=== PATIENT | female | born 1990 | race Caucasian/White ===

== ENCOUNTER 2017-01-21 20:29 | Emergency (ER) | payer OTHER ==
[~2017-01-21] VITALS: Ht 157.5 cm; Wt 86.4 kg
[~2017-01-21 20:29] MED LIST: ATENOLOL25 MG PO; BCP TD; INDERAL40 MG PO; LEXAPRO; NO HOME MEDICATIONS; PHENERGAN W/CO120 ML PO; SEPTRA DS 8001 TAB PO; ZOLOFT50 MG PO
[2017-01-21 20:34] VITALS: BP 116/92; TEMP 98.4
[2017-01-21 22:00] VITALS: PULSE 96
== END 2017-01-21 22:01 | disposition home or self-care (01) ==
LOC: COL.ER 20:29
DX: S50.01XA Contusion of right elbow, initial encounter (principal); W22.8XXA Striking against or struck by other objects, initial encounter; Y92.009 Unspecified place in unspecified non-institutional (private) residence as the place of occurrence of the external cause; F32.9 Major depressive disorder, single episode, unspecified

== ENCOUNTER 2017-11-09 17:33 | Emergency (ER) | payer OTHER ==
[~2017-11-09] VITALS: Ht 157.5 cm; Wt 79.5 kg
[2017-11-09 17:38] VITALS: BP 115/70; TEMP 99.1
[2017-11-09 19:03] LABS: COLLECTION METHOD CLEAN CATCH
[2017-11-09 19:11] LABS: MUCOUS Present /lpf; PH 6 (5-8); URINE APPEARANCE Hazy; URINE BACTERIA None Seen /hpf; URINE BILIRUBIN Negative (NEGATIVE); URINE BLOOD 3+ (NEGATIVE); URINE COLOR Amber; URINE GLUCOSE Negative (NEGATIVE); URINE KETONE Negative (NEGATIVE); URINE LEUKOCYTE ESTERASE Negative (NEGATIVE); URINE NITRATE Negative (NEGATIVE); URINE PROTEIN(semi-quant) 1+ (NEGATIVE); URINE UROBILINOGEN >=4.0 mg/dL (NEGATIVE)
[2017-11-09 21:23] VITALS: PULSE 85
== END 2017-11-09 21:23 | disposition home or self-care (01) ==
LOC: COL.ER 17:33
PROVIDERS: Emergency Medicine
DX: O20.0 Threatened abortion (principal); Z3A.01 Less than 8 weeks gestation of pregnancy; Z87.42 Personal history of other diseases of the female genital tract
CPT/HCPCS: J2791

== ENCOUNTER 2017-12-02 03:56 | Emergency (ER) | payer OTHER ==
[~2017-12-02] VITALS: Ht 157.5 cm; Wt 79.5 kg
[2017-12-02 04:04] VITALS: BP 125/80; TEMP 98.2
[2017-12-02 05:54] VITALS: PULSE 64
== END 2017-12-02 05:54 | disposition home or self-care (01) ==
LOC: COL.ER 03:56
DX: O99.351 Diseases of the nervous system complicating pregnancy, first trimester (principal); G43.909 Migraine, unspecified, not intractable, without status migrainosus; Z3A.10 10 weeks gestation of pregnancy
CPT/HCPCS: J2270; J2550; J7030

== ENCOUNTER 2017-12-29 08:51 | Emergency (ER) | payer OTHER ==
[~2017-12-29] VITALS: Ht 157.5 cm; Wt 80.5 kg
[2017-12-29 08:58] VITALS: TEMP 98.7
[2017-12-29] MEDS ORDERED: NUVESSA1.3% VG (09:09)
[2017-12-29] MEDS ORDERED: PRENATAL1 TA7 PO (09:09)
[2017-12-29 10:23] VITALS: BP 105/68; PULSE 80
== END 2017-12-29 10:26 | disposition home or self-care (01) ==
LOC: COL.ER 08:51
DX: G43.909 Migraine, unspecified, not intractable, without status migrainosus (principal); F17.210 Nicotine dependence, cigarettes, uncomplicated
CPT/HCPCS: J2550; J2765; J7030

== ENCOUNTER 2018-06-28 09:22 | Outpatient (CLI) | payer BC, MEDICAID ==
[~2018-06-28] VITALS: Ht 160 cm; Wt 100.9 kg
[~2018-06-28 09:22] MED LIST changes: +NUVESSA1.3% VG; +PRENATAL1 TA7 PO
[2018-06-28 09:37] VITALS: BP 135/84; PULSE 96; TEMP 98.7
[2018-06-28 10:00] VITALS: BP 128/81; PULSE 86
[2018-06-28 10:15] VITALS: BP 130/79; PULSE 83
[2018-06-28 10:30] VITALS: BP 131/82; PULSE 80
[2018-06-28 10:33] LABS: COLLECTION METHOD CLEAN CATCH
[2018-06-28 10:39] LABS: BASO # 0.1 (0.0-0.2); BASO % 0.4 % (0.0-2.0); EOS # 0.2 (0.0-0.7); EOS % 1.7 % (0-4.0); GRAN # 10.2 (1.4-6.5); GRAN % 77.8 % (42.2-75.2); HEMATOCRIT 37.3 % (37.0-47.0); HEMOGLOBIN 12.8 g/dl (12.5-16.0); LYMPH # 1.7 (1.2-3.4); LYMPH % 13.2 % (20.0-51.0); MEAN CELL VOLUME 90 fl (80.0-100.0); MEAN CORPUSCULAR HEMOGLOBIN 31 pg (27.0-31.0); MEAN CORPUSCULAR HGB CONC 34 g/dl (33.0-37.0); MEAN PLATELET VOLUME 10.6 fl (7.4-10.4); MONO # 0.8 (0.1-0.6); PLATELET COUNT 265 K/mm3 (130-400); RED BLOOD COUNT 4.15 M/mm3 (4.10-5.30); REDCELL DISTRIBUTION WIDTH-CV 13.2 % (11.5-14.5)
[2018-06-28 10:42] LABS: MUCOUS Present /lpf; PH 8 (5-8); URINE APPEARANCE Hazy; URINE BACTERIA Rare /hpf; URINE BILIRUBIN Negative (NEGATIVE); URINE BLOOD Negative (NEGATIVE); URINE COLOR Yellow; URINE GLUCOSE Negative (NEGATIVE); URINE KETONE Negative (NEGATIVE); URINE LEUKOCYTE ESTERASE Negative (NEGATIVE); URINE NITRATE Negative (NEGATIVE); URINE PROTEIN(semi-quant) Negative (NEGATIVE); URINE RBC 0-2 /hpf; URINE UROBILINOGEN Negative (NEGATIVE)
[2018-06-28 10:45] VITALS: BP 127/83; PULSE 91
[2018-06-28 10:47] LABS: ALBUMIN 3.5 gm/dL (3.5-5.0); BILIRUBIN,TOTAL 0.2 mg/dL (0.0-1.0); CALCIUM 9.7 mg/dL (8.4-10.2); CREATININE, serum 0.65 mg/dL (0.52-1.25); POTASSIUM 3.8 mmol/L (3.4-5.0); TOTAL PROTEIN 6.8 gm/dL (6.4-8.2)
[2018-06-28 10:59] VITALS: BP 133/89; PULSE 85
[2018-06-29] MEDS ORDERED: CALCIUM 600 PLU1 TAB PO (06:26)
[2018-06-29] MEDS ORDERED: TUMS ULTRA ST1000 MG PO (06:26)
== END 2018-06-28 11:10 | disposition home or self-care (01) ==
LOC: LDRO 09:22 → LDR 09:30 → LDRO 11:10
PROVIDERS: Student in an Organized Health Care Education/Training Program
DX: O26.893 Other specified pregnancy related conditions, third trimester (principal); R11.0 Nausea; R51 Headache; R03.0 Elevated blood-pressure reading, without diagnosis of hypertension; Z3A.39 39 weeks gestation of pregnancy
CPT/HCPCS: OP

== ENCOUNTER 2018-06-29 05:45 | Inpatient (IN) | payer BC, MEDICAID ==
[~2018-06-29] VITALS: Ht 157.5 cm; Wt 100.9 kg
[2018-06-29] VITALS (61 sets, daily range): BP systolic 110–190; BP diastolic 56–94; PULSE 52–887; TEMP 97.5–98.5
[2018-06-29] MEDS ORDERED: CALCIUM 600 PLU1 TAB PO (06:26)
[2018-06-29] MEDS ORDERED: TUMS ULTRA ST1000 MG PO (06:26)
[2018-06-29 09:07] LABS: BASO # 0.1 (0.0-0.2); BASO % 0.5 % (0.0-2.0); EOS # 0.3 (0.0-0.7); GRAN # 9.7 (1.4-6.5); HEMOGLOBIN 12.3 g/dl (12.5-16.0); LYMPH # 2.1 (1.2-3.4); LYMPH % 15.8 % (20.0-51.0); MEAN CELL VOLUME 91 fl (80.0-100.0); MEAN CORPUSCULAR HEMOGLOBIN 30 pg (27.0-31.0); MEAN CORPUSCULAR HGB CONC 33 g/dl (33.0-37.0); MEAN PLATELET VOLUME 11.1 fl (7.4-10.4); MONO # 0.9 (0.1-0.6); MONO % 6.7 % (1.7-9.3); PLATELET COUNT 268 K/mm3 (130-400); RED BLOOD COUNT 4.07 M/mm3 (4.10-5.30); REDCELL DISTRIBUTION WIDTH-CV 13.2 % (11.5-14.5)
[2018-06-30 02:00] VITALS: BP 130/82; PULSE 81; TEMP 98.7
[2018-06-30 07:55] VITALS: BP 121/65; PULSE 74; TEMP 98.3
[2018-06-30 12:05] VITALS: BP 128/62; PULSE 80; TEMP 98.5
[2018-06-30 16:45] VITALS: BP 152/76; PULSE 93; TEMP 97.9
[2018-06-30 20:55] VITALS: BP 120/69; PULSE 74; TEMP 97.9
[2018-07-01 08:30] VITALS: BP 120/82; PULSE 85; TEMP 98.4
[2018-07-01] MEDS ORDERED: IBU800 M1 PO (09:24)
[2018-07-01] MEDS ORDERED: PERCOCET 325 MG1 TA2 PO (09:25)
[2018-07-01 16:25] VITALS: BP 127/76; PULSE 85; TEMP 97.8
[2018-07-01 20:40] VITALS: BP 125/71; PULSE 83; TEMP 97.9
[2018-07-02 06:46] VITALS: BP 138/86; PULSE 76; TEMP 98.2
[2018-07-02 12:00] VITALS: BP 133/83; PULSE 88; TEMP 98.1
== END 2018-07-02 14:22 | disposition home or self-care (01) | DRG 787 ==
LOC: LDR 05:45 → OB 05:45 → LDR 17:05 → OB 18:46
PROVIDERS: Student in an Organized Health Care Education/Training Program
PROC: 10D00Z1 Extraction of Products of Conception, Low, Open Approach (ICD-10-PCS; principal; 2018-06-29)
DX: O62.1 Secondary uterine inertia (principal); O10.92 Unspecified pre-existing hypertension complicating childbirth; Z3A.39 39 weeks gestation of pregnancy; Z37.0 Single live birth; E28.2 Polycystic ovarian syndrome
CPT/HCPCS: OP; J0690; J1885; J2175; J2370; J2405; J2590; J2795; J3010; J7120

== ENCOUNTER 2018-09-05 04:34 | Emergency (ER) | payer BC, MEDICAID ==
[~2018-09-05] VITALS: Ht 157.5 cm; Wt 95.0 kg
[~2018-09-05 04:34] MED LIST changes: +CALCIUM 600 PLU1 TAB PO; +IBU800 M1 PO; +PERCOCET 325 MG1 TA2 PO; +TUMS ULTRA ST1000 MG PO
[2018-09-05 04:37] VITALS: BP 121/74; TEMP 97.3
[2018-09-05] MEDS ORDERED: NORCO 325 MG-51 TAB PO (05:32)
[2018-09-05] MEDS ORDERED: CRUTCHES MC (05:47)
[2018-09-05 06:05] VITALS: PULSE 79
== END 2018-09-05 06:05 | disposition home or self-care (01) ==
LOC: COL.ER 04:34
DX: S90.31XA Contusion of right foot, initial encounter (principal); F17.210 Nicotine dependence, cigarettes, uncomplicated; W22.8XXA Striking against or struck by other objects, initial encounter; Z88.8 Allergy status to other drugs, medicaments and biological substances

== ENCOUNTER 2019-08-29 10:41 | Emergency (ER) | payer BC ==
[~2019-08-29] VITALS: Ht 157.5 cm; Wt 95.5 kg
[~2019-08-29 10:41] MED LIST changes: +CRUTCHES MC; +NORCO 325 MG-51 TAB PO
[2019-08-29 10:52] VITALS: TEMP 98.6
[2019-08-29] MEDS ORDERED: ORTHO TRI-CYCLE1 TAB PO (10:58)
[2019-08-29 11:31] LABS: STREP SCREEN NEGATIVE
[2019-08-29 12:06] LABS: BASO # 0.1 (0.0-0.2); BASO % 0.5 % (0.0-2.0); EOS # 0.3 (0.0-0.7); GRAN # 12.9 (1.4-6.5); GRAN % 81.8 % (42.2-75.2); HEMATOCRIT 45.3 % (37.0-47.0); HEMOGLOBIN 14.7 g/dl (12.5-16.0); LYMPH # 1.4 (1.2-3.4); LYMPH % 9.2 % (20.0-51.0); MEAN CELL VOLUME 92 fl (80.0-100.0); MEAN CORPUSCULAR HEMOGLOBIN 30 pg (27.0-31.0); MEAN CORPUSCULAR HGB CONC 33 g/dl (33.0-37.0); MEAN PLATELET VOLUME 10.1 fl (7.4-10.4); MONO % 6.1 % (1.7-9.3); PLATELET COUNT 313 K/mm3 (130-400); RED BLOOD COUNT 4.91 M/mm3 (4.10-5.30); REDCELL DISTRIBUTION WIDTH-CV 12.4 % (11.5-14.5)
[2019-08-29 12:16] LABS: ALBUMIN 4.3 gm/dL (3.5-5.0); BILIRUBIN,TOTAL 0.3 mg/dL (0.0-1.0); CALCIUM 9.7 mg/dL (8.4-10.2); CREATININE, serum 0.65 (0.52-1.25); POTASSIUM 4.4 mmol/L (3.4-5.0); TOTAL PROTEIN 7.9 gm/dL (6.4-8.2)
[2019-08-29 12:56] LABS: COLLECTION METHOD CLEAN CATCH
[2019-08-29 13:10] LABS: MUCOUS Present /lpf; PH 7 (5-8); URINE APPEARANCE Clear; URINE BACTERIA Rare /hpf; URINE BILIRUBIN Negative (NEGATIVE); URINE BLOOD 3+ (NEGATIVE); URINE COLOR Yellow; URINE GLUCOSE Negative (NEGATIVE); URINE KETONE Negative (NEGATIVE); URINE LEUKOCYTE ESTERASE Negative (NEGATIVE); URINE NITRATE Negative (NEGATIVE); URINE PROTEIN(semi-quant) Negative (NEGATIVE); URINE RBC >50 /hpf; URINE UROBILINOGEN Negative (NEGATIVE)
[2019-08-29] MEDS ORDERED: AMOXICILLIN 8751 TAB PO (13:20)
[2019-08-29 13:30] VITALS: BP 121/89; PULSE 92
== END 2019-08-29 13:30 | disposition home or self-care (01) ==
LOC: COL.ER 10:41
PROVIDERS: Physician Assistant
DX: J06.9 Acute upper respiratory infection, unspecified (principal); F17.210 Nicotine dependence, cigarettes, uncomplicated; B96.89 Other specified bacterial agents as the cause of diseases classified elsewhere; Z98.890 Other specified postprocedural states; Z88.8 Allergy status to other drugs, medicaments and biological substances
CPT/HCPCS: J2405; J7030

== ENCOUNTER 2022-02-06 11:13 | Emergency (ER) | payer SELFPAY ==
[~2022-02-06] VITALS: Ht 157.5 cm; Wt 84.1 kg
[~2022-02-06 11:13] MED LIST changes: +AMOXICILLIN 8751 TAB PO; +ORTHO TRI-CYCLE1 TAB PO
[2022-02-06 11:23] VITALS: BP 176/96; TEMP 98.7
[2022-02-06 12:01] LABS: STREP SCREEN NEGATIVE
[2022-02-06 12:26] VITALS: PULSE 95
== END 2022-02-06 12:27 | disposition home or self-care (01) ==
LOC: COL.ER 11:13
PROVIDERS: Nurse Practitioner Primary Care
DX: J06.9 Acute upper respiratory infection, unspecified (principal); R59.0 Localized enlarged lymph nodes; F17.210 Nicotine dependence, cigarettes, uncomplicated; Z20.822 Contact with and (suspected) exposure to COVID-19

== ENCOUNTER 2022-09-30 11:01 | Emergency (ER) | payer SELFPAY ==
[~2022-09-30] VITALS: Ht 157.5 cm; Wt 77.3 kg
[~2022-09-30 11:01] MED LIST changes: +AMOXICILLIN875 MG PO
[2022-09-30 12:06] LABS: BASO # 0.1 K/mm3 (0.0-0.2); BASO % 0.4 % (0.0-2.0); EOS # 0.2 K/mm3 (0.0-0.7); EOS % 1.4 % (0.0-4.0); GRAN # 9.5 K/mm3 (1.4-6.5); GRAN % 83.1 % (42.2-75.2); HEMOGLOBIN 11.7 g/dl (12.5-16.0); MEAN CELL VOLUME 93 fl (80.0-100.0); MEAN CORPUSCULAR HEMOGLOBIN 30 pg (27-31); MEAN CORPUSCULAR HGB CONC 32 g/dl (33.0-37.0); MEAN PLATELET VOLUME 9.8 fl (7.4-10.4); MONO # 0.7 K/mm3 (0.1-0.6); MONO % 5.8 % (1.7-9.3); PLATELET COUNT 301 K/mm3 (130-400); RED BLOOD COUNT 3.93 M/mm3 (4.10-5.30); REDCELL DISTRIBUTION WIDTH-CV 13.1 % (11.5-14.5)
[2022-09-30 12:14] LABS: HEMATOCRIT 36.7 % (37.0-47.0)
[2022-09-30 12:24] LABS: ALBUMIN 3.4 gm/dL (3.5-5.0); BILIRUBIN,TOTAL 0.4 mg/dL (0.2-1.2); CALCIUM 8.7 mg/dL (8.4-10.2); CREATININE, serum 0.65 mg/dL (0.57-1.11); POTASSIUM 4.4 mmol/L (3.5-4.5); TOTAL PROTEIN 6.8 gm/dL (6.2-8.1)
[2022-09-30] MEDS ORDERED: NORCO 325 MG-51 TAB PO (12:29)
[2022-09-30] MEDS ORDERED: CEPHALEXIN500 M1 PO (12:29)
[2022-09-30 13:16] VITALS: BP 132/85; PULSE 87; TEMP 98.8
== END 2022-09-30 12:55 | disposition home or self-care (01) ==
LOC: COL.ER 11:01
PROVIDERS: Physician Assistant
DX: N64.4 Mastodynia (principal); F17.200 Nicotine dependence, unspecified, uncomplicated; Z28.310 Unvaccinated for COVID-19

== ENCOUNTER → 2022-10-10 | Outpatient (CLI) | payer OTHER ==
[~2022-10-10] MED LIST changes: +CEPHALEXIN500 M1 PO
== END ==
LOC: MC.RAD 13:58
DX: N63.10 Unspecified lump in the right breast, unspecified quadrant (principal)

== ENCOUNTER 2024-02-01 00:10 | Emergency (ER) | payer BC ==
[~2024-02-01] VITALS: Ht 157.5 cm; Wt 79.5 kg
[2024-02-01] MEDS ORDERED: cefTRIAXone 1 G in Water For Injection,Sterile 10 ML IV ONE (01:00)
[2024-02-01] MEDS ORDERED: Ketorolac 15 MG/ML VIAL IV ONE (01:00)
[2024-02-01] MEDS ORDERED: NS 1,000 ML IV ONE (01:00)
[2024-02-01 01:08] LABS: BASO # 0.1 K/mm3 (0.0-0.2); BASO % 0.9 % (0.0-2.0); EOS # 0.3 K/mm3 (0.0-0.7); EOS % 4.2 % (0.0-4.0); GRAN # 4.7 K/mm3 (1.4-6.5); GRAN % 59.9 % (42.2-75.2); HEMOGLOBIN 10.8 g/dl (12.5-16.0); LYMPH # 2.2 K/mm3 (1.2-3.4); LYMPH % 28.3 % (20.0-51.0); MEAN CELL VOLUME 91 fl (80.0-100.0); MEAN CORPUSCULAR HEMOGLOBIN 28 pg (27-31); MEAN CORPUSCULAR HGB CONC 31 g/dl (33.0-37.0); MEAN PLATELET VOLUME 9.7 fl (7.4-10.4); MONO # 0.5 K/mm3 (0.1-0.6); MONO % 6.6 % (1.7-9.3); PLATELET COUNT 333 K/mm3 (130-400); REDCELL DISTRIBUTION WIDTH-CV 14.3 % (11.5-14.5)
[2024-02-01 01:10] LABS: HEMATOCRIT 34.7 % (37.0-47.0)
[2024-02-01 01:25] LABS: ALBUMIN 3.5 g/dL (3.5-5.0); BILIRUBIN,TOTAL 0.2 mg/dL (0.2-1.2); CALCIUM 9.1 mg/dL (8.4-10.2); CREATININE, serum 0.74 mg/dL (0.57-1.11); POTASSIUM 3.4 mEq/L (3.5-4.5); TOTAL PROTEIN 6.4 g/dl (6.2-8.1)
[2024-02-01 02:03] VITALS: BP 121/75; PULSE 75; TEMP 98
== END 2024-02-01 02:03 | disposition home or self-care (01) ==
LOC: COL.ER 00:10
PROVIDERS: Personal Emergency Response Attendant
DX: I10 Essential (primary) hypertension (principal); K08.89 Other specified disorders of teeth and supporting structures
CPT/HCPCS: J0696; J0780; J1885; J7030

== ENCOUNTER 2024-05-09 06:47 | Emergency (ER) | payer BC ==
[~2024-05-09] VITALS: Ht 157.5 cm; Wt 79.5 kg
[2024-05-09 06:56] VITALS: TEMP 98.5
[2024-05-09] MEDS ORDERED: Morphine 4 MG/ML VIAL IV ONE (07:45)
[2024-05-09] MEDS ORDERED: NS 1,000 ML IV ONE (07:45)
[2024-05-09] MEDS ORDERED: Ondansetron 4 MG/2 ML VIAL IV PRN (07:45)
[2024-05-09 08:24] LABS: COLLECTION METHOD CLEAN CATCH
[2024-05-09 08:27] LABS: ALBUMIN 3.4 g/dL (3.5-5.0); BILIRUBIN,TOTAL 0.2 mg/dL (0.2-1.2); CREATININE, serum 0.74 mg/dL (0.57-1.11); POTASSIUM 3.7 mEq/L (3.5-4.5); TOTAL PROTEIN 6.9 g/dl (6.2-8.1)
[2024-05-09 08:36] LABS: PH 7.5 (5.0-8.5); URINE APPEARANCE CLEAR (CLEAR/HAZY); URINE BLOOD NEGATIVE (NEGATIVE); URINE COLOR YELLOW (YELLOW); URINE GLUCOSE NEGATIVE (NEGATIVE); URINE KETONE NEGATIVE (NEGATIVE); URINE NITRATE NEGATIVE (NEGATIVE); URINE PROTEIN(semi-quant) NEGATIVE (NEGATIVE); URINE UROBILINOGEN 0.2 E.U/dL (0.2-1.0)
[2024-05-09 09:13] LABS: BASO # 0.1 K/mm3 (0.0-0.2); BASO % 0.6 % (0.0-2.0); EOS # 0.4 K/mm3 (0.0-0.7); EOS % 4.3 % (0.0-4.0); GRAN # 6.3 K/mm3 (1.4-6.5); GRAN % 67.4 % (42.2-75.2); LYMPH % 21.6 % (20.0-51.0); MEAN CELL VOLUME 86 fl (80.0-100.0); MEAN CORPUSCULAR HEMOGLOBIN 28 pg (27-31); MEAN CORPUSCULAR HGB CONC 33 g/dl (33.0-37.0); MONO # 0.5 K/mm3 (0.1-0.6); MONO % 5.7 % (1.7-9.3); PLATELET COUNT 243 K/mm3 (130-400); RED BLOOD COUNT 4.26 M/mm3 (4.10-5.30); REDCELL DISTRIBUTION WIDTH-CV 14.2 % (11.5-14.5)
[2024-05-09 09:14] LABS: HEMATOCRIT 36.7 % (37.0-47.0)
[2024-05-09] MEDS ORDERED: Ondansetron 4 MG/2 ML VIAL IV ONE (10:45)
[2024-05-09] MEDS ORDERED: PERCOCET 325 MG1 TA2 PO (11:33)
[2024-05-09] MEDS ORDERED: SOMA 350MG350 MG/TAB PO (11:33)
[2024-05-09 11:50] VITALS: BP 148/91; PULSE 67
== END 2024-05-09 11:50 | disposition home or self-care (01) ==
LOC: COL.ER 06:47
PROVIDERS: Personal Emergency Response Attendant
DX: M54.6 Pain in thoracic spine (principal)
CPT/HCPCS: J2270; J2405; J7030